=== PATIENT | male | born 1975 | race Caucasian/White ===

== ENCOUNTER 2018-01-11 12:19 | Inpatient (IN) | payer MEDICARE, OTHER ==
[~2018-01-11] VITALS: Ht 167.6 cm; Wt 63.5 kg
[2018-01-11] MEDS ORDERED: HALO10TA13 PO (12:53)
[2018-01-11] MEDS ORDERED: OLAN15TA3 PO (12:53)
[2018-01-11] MEDS ORDERED: VANCOMYCIN IV 1,000 MG in IV DEXTROSE 5% 250 ML IV ONE (13:45)
[2018-01-11] MEDS ORDERED: IV NORMAL SALINE 1000 ML BAG IV ONE (13:45)
[2018-01-11] MEDS ORDERED: GENTAMICIN SULFATE INJ 80 MG in IV DEXTROSE 5% 100 ML IV ONE (13:45)
[2018-01-11] MEDS ORDERED: GENTAMICIN SULFATE 80 MG/2 ML VIAL ONE (14:09)
[2018-01-11] MEDS ORDERED: VANCOMYCIN IV 200 ML ONE (14:10)
[2018-01-11 14:25] LABS: BASOPHILS % (AUTO) 0.4 % (0.0-2.0); EOSINOPHILS # (AUTO) 0.1 K/uL (0.0-0.7); EOSINOPHILS % (AUTO) 0.9 % (0.0-7.0); HEMATOCRIT 35.6 % (36.7-47.1); HEMOGLOBIN 12.3 g/dL (12.5-16.3); LYMPHOCYTES # (AUTO) 1.2 K/uL (20.0-40.0); LYMPHOCYTES % (AUTO) 16.7 % (20.5-51.5); MEAN CORPUSCULAR HEMOGLOBIN 29.8 uug (23.8-33.4); MEAN CORPUSCULAR HGB CONC 35 g/dL (32.5-36.3); MONOCYTES # (AUTO) 0.7 K/uL (2.0-10.0); MONOCYTES % (AUTO) 9.7 % (0.0-11.0); NEUTROPHILS # (AUTO) 5.4 K/uL (1.8-8.9); NEUTROPHILS % (AUTO) 72.3 % (38.5-71.5); PLATELET COUNT (AUTO) 353 K/uL (152-348); RED BLOOD CELL COUNT(AUTO) 4.14 MIL/uL (4.06-5.63); WHITE BLOOD COUNT (AUTO) 7.4 K/uL (3.6-10.2)
[2018-01-11 14:33] LABS: CREATININE 0.8 mg/dL (0.6-1.3); POTASSIUM 3.7 mmol/L (3.5-5.1)
[2018-01-11 14:49] LABS: BILIRUBIN,DIRECT 0.1 mg/dL (0.0-0.2); BILIRUBIN,TOTAL 0.3 mg/dL (0.2-1.0); TOTAL PROTEIN, SERUM 6.8 g/dL (6.4-8.2)
[2018-01-11 15:02] LABS: *BILIRUBIN,URIN NEGATIVE (NEGATIVE); *BLOOD, URINE 2+ (NEGATIVE); *CLARITY,URINE SLIGHTLY CLOUDY (CLEAR); *COLOR,URINE YELLOW (YELLOW); *KETONES,URINE 1+ (NEGATIVE); *PROTEIN,URINE NEGATIVE (NEGATIVE); *UROBILINOGEN,URINE 0.2 E.U./dl (NORMAL); LEUKOCYTE ESTERASE ,URINE NEGATIVE (NEGATIVE); NITRITE, URINE NEGATIVE (NEGATIVE); UGLUCOSE NEGATIVE (NEGATIVE)
[2018-01-11 15:10] LABS: BACTERIA,URINE NONE SEEN /HPF (NONE SEEN); SQUAMOUS EPITHELIAL CELL,UR FEW /HPF (NONE SEEN)
[2018-01-11] MEDS ORDERED: MORPHINE SULFATE 2 MG/1 ML DISP.SYRIN IV PRN (18:15)
[2018-01-11 18:27] VITALS: BP 106/71
[2018-01-11] MEDS ORDERED: MORPHINE SULFATE 4 MG/1 ML DISP.SYRIN IV PRN (18:30)
[2018-01-11 20:26] VITALS: BP 142/74
[2018-01-11] MEDS ORDERED: ACETAMINOPHEN 325 MG TABLET PO PRN (20:30)
[2018-01-11] MEDS ORDERED: ONDANSETRON 4 MG/2 ML VIAL IV PRN (20:30)
[2018-01-12 00:20] VITALS: BP 119/68
[2018-01-12] MEDS: POTASSIUM CHLORIDE 20 MEQ in IV D5 1/2 NS 1000 ML 1,000 ML IV PRN ×2 (01:51→16:57)
[2018-01-12 04:00] VITALS: BP 110/71
[2018-01-12] MEDS: PANTOPRAZOLE SODIUM 40 MG TABLET.DR PO SCH (06:09)
[2018-01-12 07:08] LABS: BASOPHILS % (AUTO) 0.3 % (0.0-2.0); EOSINOPHILS # (AUTO) 0.1 K/uL (0.0-0.7); EOSINOPHILS % (AUTO) 1.2 % (0.0-7.0); HEMATOCRIT 34.8 % (36.7-47.1); HEMOGLOBIN 11.9 g/dL (12.5-16.3); LYMPHOCYTES # (AUTO) 1.9 K/uL (20.0-40.0); LYMPHOCYTES % (AUTO) 26.4 % (20.5-51.5); MEAN CORPUSCULAR HEMOGLOBIN 29.6 uug (23.8-33.4); MEAN CORPUSCULAR HGB CONC 34 g/dL (32.5-36.3); MEAN CORPUSCULAR VOLUME 86.5 fL (73.0-96.2); MONOCYTES # (AUTO) 0.4 K/uL (2.0-10.0); MONOCYTES % (AUTO) 5.9 % (0.0-11.0); NEUTROPHILS # (AUTO) 4.8 K/uL (1.8-8.9); NEUTROPHILS % (AUTO) 66.2 % (38.5-71.5); PLATELET COUNT (AUTO) 350 K/uL (152-348); RED BLOOD CELL COUNT(AUTO) 4.03 MIL/uL (4.06-5.63); WHITE BLOOD COUNT (AUTO) 7.2 K/uL (3.6-10.2)
[2018-01-12 07:16] LABS: THYROID STIMULATING HORMONE 1.163 mIU/mL (0.358-3.740)
[2018-01-12] MEDS: LORAZEPAM 2 MG/1 ML VIAL IV PRN (07:47)
[2018-01-12 08:00] VITALS: BP 116/69
[2018-01-12 08:18] LABS: BILIRUBIN,TOTAL 0.4 mg/dL (0.2-1.0); CREATININE 0.7 mg/dL (0.6-1.3); MAGNESIUM 1.7 mg/dL (1.8-2.4); PHOSPHOROUS 3.9 mg/dL (2.5-4.9); POTASSIUM 3.8 mmol/L (3.5-5.1); TOTAL PROTEIN, SERUM 6.4 g/dL (6.4-8.2)
[2018-01-12] MEDS ORDERED: OLANZAPINE 5 MG TABLET PO SCH (09:00)
[2018-01-12] MEDS ORDERED: HALOPERIDOL 5 MG TABLET PO SCH (09:00)
[2018-01-12 11:04] VITALS: BP 105/61
[2018-01-12] MEDS ORDERED: MAGNESIUM SULFATE/D5W 100 ML IV SCH (12:15)
[2018-01-12] MEDS ORDERED: Z GUARD REMEDY PASTE 57 GM TUBE TOP PRN (13:45)
[2018-01-12 15:01] VITALS: BP 100/63
[2018-01-12] MEDS: Z GUARD REMEDY PASTE 57 GM TUBE TOP SCH ×2 (15:47→21:06)
[2018-01-12] MEDS: OLANZAPINE 5 MG TABLET PO SCH (16:53)
[2018-01-12] MEDS: BENZTROPINE MESYLATE 0.5 MG TABLET PO SCH (18:50)
[2018-01-12 20:00] VITALS: BP 100/57
[2018-01-13] MEDS: POTASSIUM CHLORIDE 20 MEQ in IV D5 1/2 NS 1000 ML 1,000 ML IV PRN ×2 (05:18→18:55)
[2018-01-13] MEDS: PANTOPRAZOLE SODIUM 40 MG TABLET.DR PO SCH (06:18)
[2018-01-13] MEDS: BENZTROPINE MESYLATE 0.5 MG TABLET PO SCH ×2 (08:32→16:53)
[2018-01-13] MEDS: OLANZAPINE 5 MG TABLET PO SCH ×2 (08:32→16:57)
[2018-01-13] MEDS: Z GUARD REMEDY PASTE 57 GM TUBE TOP SCH ×2 (08:36→19:56)
[2018-01-13 11:59] VITALS: BP 100/64
[2018-01-13 16:00] VITALS: BP 105/69
[2018-01-13] MEDS: LORAZEPAM 2 MG/1 ML VIAL IV PRN (19:55)
[2018-01-13 20:32] VITALS: BP 97/60
[2018-01-13 21:46] VITALS: BP 115/67
[2018-01-14 04:00] VITALS: BP 103/61
[2018-01-14] MEDS: PANTOPRAZOLE SODIUM 40 MG TABLET.DR PO SCH (06:04)
[2018-01-14] MEDS: BENZTROPINE MESYLATE 0.5 MG TABLET PO SCH ×2 (08:28→17:06)
[2018-01-14] MEDS: OLANZAPINE 5 MG TABLET PO SCH (08:29)
[2018-01-14] MEDS: Z GUARD REMEDY PASTE 57 GM TUBE TOP SCH (08:30)
[2018-01-14] MEDS: POTASSIUM CHLORIDE 20 MEQ in IV D5 1/2 NS 1000 ML 1,000 ML IV PRN (09:57)
[2018-01-14 11:52] VITALS: BP 94/52
[2018-01-14 15:41] VITALS: BP 96/59
[2018-01-14] MEDS ORDERED: MAGN400O6 PO (15:44)
[2018-01-14] MEDS ORDERED: MULT1TAB73 PO (15:44)
[2018-01-14] MEDS ORDERED: ACET325T53 PO (15:44)
[2018-01-14] MEDS ORDERED: MENT71OI TOP (15:44)
[2018-01-14] MEDS ORDERED: FAMO-132 PO (15:44)
[2018-01-14] MEDS ORDERED: DOCU-141 PO (15:44)
[2018-01-14] MEDS ORDERED: BENZ0.5T43 PO (15:44)
== END 2018-01-14 17:25 | DRG 555 ==
LOC: ER 12:19 → TELE 15:50 → MED 01-12 14:59
PROVIDERS: ADMIT Internal Medicine; ATTEND Internal Medicine
DX: M62.81 Muscle weakness (generalized) (principal); G92 Toxic encephalopathy; D68.59 Other primary thrombophilia; S06.9X0S Unspecified intracranial injury without loss of consciousness, sequela; F20.0 Paranoid schizophrenia; E83.42 Hypomagnesemia; F07.81 Postconcussional syndrome; T14.8XXS Other injury of unspecified body region, sequela; X58.XXXS Exposure to other specified factors, sequela; D63.8 Anemia in other chronic diseases classified elsewhere; Z87.891 Personal history of nicotine dependence; Z74.09 Other reduced mobility; R13.10 Dysphagia, unspecified; R00.0 Tachycardia, unspecified; R47.9 Unspecified speech disturbances
CPT/HCPCS: 36415; 70030-TC; 70450; 71045; 82306; 83550; 83605; 83735; 84100; 84443; 85025; 85730; 87040; 87086; 92610; 93005; 97116; 97165; 97530; A4663; J1580; J2060; J2270; J3370; J3475; J3480; J3490; J7030

== ENCOUNTER 2018-01-14 18:03 | Inpatient (IN) | payer MEDICARE, OTHER ==
[~2018-01-14] VITALS: Ht 167.6 cm; Wt 63.5 kg
[~2018-01-14 18:03] MED LIST: ACET325T53 PO; BENZ0.5T43 PO; DOCU-141 PO; FAMO-132 PO; HALO10TA13 PO; MAGN400O6 PO; MENT71OI TOP; MULT1TAB73 PO; OLAN15TA3 PO
[2018-01-14 19:30] VITALS: BP 102/68
[2018-01-14] MEDS ORDERED: ACETAMINOPHEN 325 MG TABLET PO PRN (19:45)
[2018-01-14] MEDS ORDERED: MAGNESIUM HYDROXIDE 30 ML LIQUID UDC PO PRN (19:45)
[2018-01-14] MEDS ORDERED: Z GUARD REMEDY PASTE 57 GM TUBE TOP PRN (19:45)
--- NOTE | 2018-01-14 20:30 | NUR ---
Received pt on bed awake and alert with no signs/symptoms of distress. Denies pain at this time. No SOB noted. All due meds given as ordered and well tolerated. No signs/symptoms of aspiration noted. Kept clean, dry and comfortable. Side rails up x2. Bed alarm on. Bed locked and in lowest position. Call light placed within reach. All needs attended.
[2018-01-14] MEDS: DOCUSATE SODIUM 100 MG CAPSULE PO SCH (20:48)
--- NOTE | 2018-01-15 05:53 | NUR ---
Patient slept intermittently throughout the shift. No acute distress noted. No signs/symptoms of agitation noted. No facial grimacing or any signs of pain. Pertinent assessments done, pictures taken and placed on chart. Incontinent care rendered. Turned and repositioned pt. Call light placed within reach. All needs attended
[2018-01-15 07:00] VITALS: BP 95/58
[2018-01-15 07:30] LABS: BASOPHILS % (AUTO) 0.5 % (0.0-2.0); EOSINOPHILS # (AUTO) 0.2 K/uL (0.0-0.7); EOSINOPHILS % (AUTO) 2.4 % (0.0-7.0); HEMATOCRIT 36.3 % (36.7-47.1); HEMOGLOBIN 12.3 g/dL (12.5-16.3); LYMPHOCYTES # (AUTO) 2.1 K/uL (20.0-40.0); LYMPHOCYTES % (AUTO) 31.2 % (20.5-51.5); MEAN CORPUSCULAR HEMOGLOBIN 29.3 uug (23.8-33.4); MEAN CORPUSCULAR HGB CONC 34 g/dL (32.5-36.3); MEAN CORPUSCULAR VOLUME 86.5 fL (73.0-96.2); MONOCYTES # (AUTO) 0.5 K/uL (2.0-10.0); NEUTROPHILS # (AUTO) 3.9 K/uL (1.8-8.9); NEUTROPHILS % (AUTO) 58.9 % (38.5-71.5); PLATELET COUNT (AUTO) 341 K/uL (152-348); WHITE BLOOD COUNT (AUTO) 6.6 K/uL (3.6-10.2)
[2018-01-15 07:45] LABS: ALANINE AMINOTRANSFERASE 26 U/L (16-63); ALKALINE PHOSPHATASE 62 U/L (50-136); ASPARTATE AMINOTRANSFERASE 14 U/L (15-37); BILIRUBIN,TOTAL 0.3 mg/dL (0.2-1.0); CARBON DIOXIDE 28 mmol/L (21-32); CHLORIDE 105 mmol/L (98-107); CREATININE 0.6 mg/dL (0.6-1.3); GLUCOSE 94 mg/dL (74-106); MAGNESIUM 1.8 mg/dL (1.8-2.4); PHOSPHOROUS 3.9 mg/dL (2.5-4.9); POTASSIUM 3.9 mmol/L (3.5-5.1); TOTAL PROTEIN, SERUM 6.4 g/dL (6.4-8.2); UREA NITROGEN, BLOOD 12 mg/dL (7-18)
[2018-01-15] MEDS: OLANZAPINE 5 MG TABLET PO SCH ×2 (08:34→18:15)
[2018-01-15] MEDS: FAMOTIDINE 20 MG TABLET PO SCH (08:36)
[2018-01-15] MEDS: MULTIVITAMINS,THERAPEUTIC TABLET PO SCH (08:36)
[2018-01-15] MEDS: BENZTROPINE MESYLATE 0.5 MG TABLET PO SCH ×2 (08:36→18:16)
[2018-01-15] MEDS ORDERED: Medication Not On Formulary EA (Multivitamins (Multivitamin) 1 EACH) PO SCH (09:00)
[2018-01-15 19:45] VITALS: BP 107/67
--- NOTE | 2018-01-15 19:57 | NUR ---
Received pt on bed alert and awake. No apparent distress noted. No facial grimacing noted or any signs of pain. Breathing even and unlabored with normal respirations. Vital signs stable. Kept clean, dry and comfortable. Side rails up x2. Bed alarm on. Bed locked and in lowest position. Call light within reach. All needs anticipated.
[2018-01-15] MEDS: DOCUSATE SODIUM 100 MG CAPSULE PO SCH (20:30)
--- NOTE | 2018-01-16 05:37 | NUR ---
Patient slept intermittently during the shift. still with episodes of confusion but no acute distress noted. No signs of pain noted. No SOB. Turned and repositioned pt. Z-guard applied on sacrum. Kept clean, dry and comfortable. Call light within reach. All needs anticipated.
[2018-01-16 07:50] VITALS: BP 106/65
[2018-01-16] MEDS: FAMOTIDINE 20 MG TABLET PO SCH (09:03)
[2018-01-16] MEDS: OLANZAPINE 5 MG TABLET PO SCH ×3 (09:03→18:20)
[2018-01-16] MEDS: MULTIVITAMINS,THERAPEUTIC TABLET PO SCH (09:03)
[2018-01-16] MEDS: BENZTROPINE MESYLATE 0.5 MG TABLET PO SCH ×3 (09:07→18:21)
[2018-01-16 19:30] VITALS: BP 107/64
--- NOTE | 2018-01-16 19:40 | NUR ---
Pt resting in bed. No acute distress noted. No c/o pain or discomfort. No facial grimacing or other signs of pain noted. Safety measures maintained. Bed alarm on. Call light and personal belongings within reach. Will continue to monitor.
[2018-01-16] MEDS: DOCUSATE SODIUM 100 MG CAPSULE PO SCH (20:13)
--- NOTE | 2018-01-17 05:53 | NUR ---
Pt slept intermittently at night. Had watery bowel movement with foul smelling odor noted x1. MD made aware last night of pt's diarrhea ever since the morning. Diaper changed as needed. All needs attended to promptly. Will endorse to day shift RN. Continue to monitor.
[2018-01-17 08:00] VITALS: BP 107/64
[2018-01-17] MEDS: FAMOTIDINE 20 MG TABLET PO SCH (09:00)
[2018-01-17] MEDS: MULTIVITAMINS,THERAPEUTIC TABLET PO SCH (09:00)
[2018-01-17] MEDS: BENZTROPINE MESYLATE 0.5 MG TABLET PO SCH ×2 (09:17→17:01)
[2018-01-17] MEDS: OLANZAPINE 5 MG TABLET PO SCH ×2 (09:18→17:01)
--- NOTE | 2018-01-17 18:52 | NUR ---
Pt clean and dry, repositioned for comfort Q2hrs. Pt denies pain. Compliant with evening medication administration but refused morning vitamin. Pt had a loose BMx1 with slight blood present this shift. Call light within reach. Safety and comfort measures implemented. Will continue to monitor and endorse to oncoming transfer car operator drier.
--- NOTE | 2018-01-17 19:58 | NUR ---
Introduced myself after knocking the door. Receive patient laying in bed, asleep but wakes up when called by name. Patient appeared scared and and stared at me without saying a word. Asked patient is he is okay, if he is in pain or what is in his mind. Explained to patient that I am her nurse tonight and that I will take his vital signs. He refused at first and stated people are trying to kill him, that I am one of those people that wants to kill him with the thing that I was holding which was the bp cuff. Explained thoroughly to the patient that the bp will be used to take his blood pressure. Reoriented the patient and reassured the patient that he will be safe because he is in the hospital. Patient agreed to have his vital signs taken except for the temperature. Patient stated he wanted to sleep and never want to be disturbed. Explained to patient again that I will be checking on him regularly to make sure he is okay and safe. Patient turned to his back and was laid on his right side and covered his face without any response. Will continue to monitor the patient.
[2018-01-17] MEDS: DOCUSATE SODIUM 100 MG CAPSULE PO SCH (20:53)
--- NOTE | 2018-01-17 21:10 | NUR ---
MD Dr. Begum made rounds, informed and updated about patient's condition. Pt. appreared sleeping for now and no sigsn of any agitation. With new order of Psych consult. Will continue to monitor the patient.
--- NOTE | 2018-01-17 21:15 | NUR ---
Susy MORALES from [facility] informed regarding patient's psych consult. Per CN they will inform Dr. Sumner in AM.
--- NOTE | 2018-01-18 05:20 | NUR ---
Patient able to sleep throughout the night. Diaper changed per soiling, no BM noted. Patient appeared confused, emotionally flat and when asked with certain questions like if he is okay or is in pain, patient answers selective questions only. Patient not talking much and appeared to withdrawn after conversation. Will continue to monitor the patient.
[2018-01-18 07:09] VITALS: BP 98/58
[2018-01-18] MEDS: OLANZAPINE 5 MG TABLET PO SCH ×2 (08:17→17:47)
[2018-01-18] MEDS: FAMOTIDINE 20 MG TABLET PO SCH (08:17)
[2018-01-18] MEDS: MULTIVITAMINS,THERAPEUTIC TABLET PO SCH (08:17)
[2018-01-18] MEDS: BENZTROPINE MESYLATE 0.5 MG TABLET PO SCH ×2 (08:21→17:47)
--- NOTE | 2018-01-18 09:33 | NUR ---
Patient noted sitting in chair wide side table in front, no complaints of pain noted, no signs of distress, call light in reach, PETROLEUM ENGINEER assistance for meals provided, all am medications given
--- NOTE | 2018-01-18 19:30 | NUR ---
Patient received in bed. Alert and verbally responsive. Able to make needs known. Denies any pain and discomfort. No acute distress. No SOB. Kept clean and dry. All needs attended to promptly. Call light within reach. Will continue to monitor.
[2018-01-18 20:00] VITALS: BP 96/69
[2018-01-18] MEDS: DOCUSATE SODIUM 100 MG CAPSULE PO SCH (20:44)
--- NOTE | 2018-01-19 06:03 | NUR ---
Patient slept comfortably throughout the night. No c/o pain and discomfort. No acute distress. No SOB. Kept clean and dry. All needs attended to promptly. Call light within reach. Will continue to monitor.
[2018-01-19 07:13] VITALS: BP 98/62
--- NOTE | 2018-01-19 08:00 | NUR ---
Received patient, awake alert resting in bed. Denies any pain. Appears to be withdrawn
[2018-01-19] MEDS: BENZTROPINE MESYLATE 0.5 MG TABLET PO SCH ×3 (08:44→17:21)
[2018-01-19] MEDS: MULTIVITAMINS,THERAPEUTIC TABLET PO SCH (08:44)
[2018-01-19] MEDS: FAMOTIDINE 20 MG TABLET PO SCH (08:45)
[2018-01-19] MEDS: OLANZAPINE 5 MG TABLET PO SCH ×3 (08:45→17:21)
[2018-01-19] MEDS: SERTRALINE HCL 50 MG TABLET PO SCH (08:45)
--- NOTE | 2018-01-19 18:00 | NUR ---
Refused Xyprexa an Cogentin medications, patient spitted medication out and claims it upsets his stomach and claims we are trying to get rid of him. Explained benefits and risks to patient, patient still refused.
--- NOTE | 2018-01-19 20:00 | NUR ---
Received patient sitting up in bed. Alert and verbally responsive. Able to make needs known. Denies any pain and discomfort. No acute distress. No SOB. Kept clean and dry. All needs attended to promptly. Call light within reach. Will continue to monitor.
[2018-01-19 20:29] VITALS: BP 99/59
[2018-01-19] MEDS: DOCUSATE SODIUM 100 MG CAPSULE PO SCH (21:00)
--- NOTE | 2018-01-19 21:07 | NUR ---
Patient refused 2100 docusate sodium 200mg. Verbalizes he just wants to sleep. Explained risks and benefits. Still strongly refused x3. All needs attended to promptly. Call light within reach. Will continue to monitor.
[2018-01-20 07:30] VITALS: BP 87/50
[2018-01-20] MEDS: OLANZAPINE 5 MG TABLET PO SCH ×2 (09:07→17:00)
[2018-01-20] MEDS: BENZTROPINE MESYLATE 0.5 MG TABLET PO SCH ×2 (09:07→17:00)
[2018-01-20] MEDS: FAMOTIDINE 20 MG TABLET PO SCH (09:07)
[2018-01-20] MEDS: MULTIVITAMINS,THERAPEUTIC TABLET PO SCH (09:08)
[2018-01-20] MEDS: SERTRALINE HCL 50 MG TABLET PO SCH (09:08)
[2018-01-20 20:00] VITALS: BP 101/65
--- NOTE | 2018-01-20 20:00 | NUR ---
Received pt lying comfortably in bed, alert and awake with episodes of confusion. no apparent distress noted. No complaints of pain or discomfort. No SOB noted. All due meds given as ordered and well tolerated. Kept clean, dry and comfortable. Side rails up x2. Bed alarm on. Bed locked and in lowest position. Call light placed within reach. All needs attended.
[2018-01-20] MEDS: DOCUSATE SODIUM 100 MG CAPSULE PO SCH (20:29)
--- NOTE | 2018-01-21 05:58 | NUR ---
Patient slept well throughout the shift with no signs of distress. No facial grimacing or any signs of pain noted. No SOB. Kept clean, dry and comfortable. Safety and fall precautions observed and maintained. Call light within reach. All needs attended.
[2018-01-21] MEDS: FAMOTIDINE 20 MG TABLET PO SCH (08:29)
[2018-01-21] MEDS: SERTRALINE HCL 50 MG TABLET PO SCH (08:29)
[2018-01-21] MEDS: BENZTROPINE MESYLATE 0.5 MG TABLET PO SCH ×2 (08:30→17:00)
[2018-01-21] MEDS: OLANZAPINE 5 MG TABLET PO SCH ×2 (08:30→17:00)
[2018-01-21] MEDS: MULTIVITAMINS,THERAPEUTIC TABLET PO SCH (08:35)
--- NOTE | 2018-01-21 14:57 | NUR ---
INTERDISCIPLINARY TEAM CONFERENCE
--- NOTE | 2018-01-21 19:35 | NUR ---
Receive patient laying in bed, awake and looking so scared and was screaming. Introduced and explained to patient that I am her nurse tonight. Fear and hallucinations noted. Patient saying his room is on fire as well as the people inside the room. Reoriented the patient and reassured the patient that there is no fire and that he is in the hospital. Vital signs taken and recorded, WNL. Pertinent assessment done. Will inform MD of patient's status. Will continue to monitor the patient.
[2018-01-21] MEDS ORDERED: HALOPERIDOL LACTATE 5 MG/1 ML VIAL IM PRN (20:30)
--- NOTE | 2018-01-21 20:30 | NUR ---
Patient noted screaming loudly again and saying there's fire. MD Dr. Santos informed, with new order of Haldol 2mg injection one dose only noted and recorded. Will continue to monitor the patient.
[2018-01-21 20:48] VITALS: BP 109/65
[2018-01-21] MEDS: DOCUSATE SODIUM 100 MG CAPSULE PO SCH (21:13)
--- NOTE | 2018-01-22 05:37 | NUR ---
Patient able to sleep throughout the night. No s/s of any acute respiratory distress. All needs attended to. Patient kept clean, dry and comfortable. Diaper changed per soiling. Will endorse to AM shift nurse.
--- NOTE | 2018-01-22 08:00 | NUR ---
Received pt. in bed resting, awake, oriented x 2, confused and hallucinating @ times. Pt. in room air and no s/s of sob. Breathing regular, symmetrical and unlabored. Pt. in semi-fowlers position, turned and repositioned pt. as needed with the help of CAREER LAW CLERK. Pt. denies pain during assessment, ready to eat breakfast, able to eat by himself after setting the breakfast tray. The psyche consult Dr. Magdaleno is already notified/called by the night shifts RN in order for the Doctor to visit and checked pt to ARU due to increase hallucination such as screaming, seeing or hearing things that are not there, paranoia episodes and other Schizophrenic S/S. Awaiting for the MD to see pt.
[2018-01-22 08:47] VITALS: BP 102/67
[2018-01-22] MEDS: OLANZAPINE 5 MG TABLET PO SCH ×2 (10:14→17:48)
[2018-01-22] MEDS: FAMOTIDINE 20 MG TABLET PO SCH (10:14)
[2018-01-22] MEDS: MULTIVITAMINS,THERAPEUTIC TABLET PO SCH (10:14)
[2018-01-22] MEDS: SERTRALINE HCL 50 MG TABLET PO SCH (10:14)
[2018-01-22] MEDS: BENZTROPINE MESYLATE 0.5 MG TABLET PO SCH ×2 (10:15→17:47)
--- NOTE | 2018-01-22 12:00 | NUR ---
Pt. resting, able to express and verbalize to the RN and other caregivers his needs and concerns, still with psyche s/s that needs to be seen by the Psyche Physician. Maintained pt. safety, keep clean, dry and comfortable in bed.
--- NOTE | 2018-01-22 17:00 | NUR ---
Pt. provided bedside nsg. care. No s/s of acute change. Pt. stable with v/s, afebrile -see v/s done by the BLOCK SEALER. Frequent roundings and repositional change and assistance with needs @ provided @ the bedside. Keep pt. safe, warm, clean, dry and comfortable in bed.
[2018-01-22 20:18] VITALS: BP 100/62
--- NOTE | 2018-01-22 20:30 | NUR ---
NSG: Received patient laying in bed. Alert and verbally responsive. Able to make needs known. Denies any pain and discomfort. No acute distress. No SOB. Kept clean and dry. All needs attended to promptly. Call light within reach. Refused hs po Colace. continue plan of care.
[2018-01-22] MEDS: DOCUSATE SODIUM 100 MG CAPSULE PO SCH (21:00)
--- NOTE | 2018-01-23 06:43 | NUR ---
NSG:Patient slept comfortably throughout the night. Remain confused and forgetful. No c/o pain and discomfort. No acute distress. No SOB. Kept clean and dry. All needs attended to promptly. Call light within reach. Will continue to monitor.
[2018-01-23 07:30] VITALS: BP 122/75
[2018-01-23] MEDS: OLANZAPINE 5 MG TABLET PO SCH ×2 (08:48→16:47)
[2018-01-23] MEDS: MULTIVITAMINS,THERAPEUTIC TABLET PO SCH (08:51)
[2018-01-23] MEDS: SERTRALINE HCL 50 MG TABLET PO SCH (08:51)
[2018-01-23] MEDS: FAMOTIDINE 20 MG TABLET PO SCH (08:51)
[2018-01-23] MEDS: BENZTROPINE MESYLATE 0.5 MG TABLET PO SCH ×2 (08:51→16:49)
--- NOTE | 2018-01-23 17:59 | NUR ---
Daily Nursing Note: Patient is awake and alert, with periods of forgetfulness. Needs attended promptly. Compliant with his care plan. Patient has episodes of agitation, provided with constant reassurance and redirection provided. Kept clean and dry. Call light in reach, bed in low position.
--- NOTE | 2018-01-23 19:30 | NUR ---
Received patient from day shift RN. Patient currently lying in bed comfortably with no acute distress noted. Patient seems slightly confused but able to make some needs known. Pertinent assessment completed. Patient noted with open wound sacral area, present on admission. Currently has Z guard applied. Room checked for safety at start of shift. Bed in the low position & locked. Call light within reach. Will continue to monitor through shift.
[2018-01-23 20:00] VITALS: BP 102/67
[2018-01-23] MEDS: DOCUSATE SODIUM 100 MG CAPSULE PO SCH (21:11)
--- NOTE | 2018-01-24 06:09 | NUR ---
Patient slept well through the night. No agitation noted during the shift. All needs attended to. Diaper changed per soiling. Patient kept clean & dry. Safety measures implemented. Bed kept in the low position & locked. Provided skin care to sacral area of patient. Z Guard and mepilex applied. Call light within reach. Will endorse to day shift nurse.
[2018-01-24 07:53] VITALS: BP 91/53
--- NOTE | 2018-01-24 08:09 | NUR ---
Patient noted laying bed, no facial cues of pain noted, no signs of distress noted, call light in reach, bed locked and in lowest position, bed alarm in place, x 2 bed rails, all needs met at this time
[2018-01-24] MEDS: SERTRALINE HCL 50 MG TABLET PO SCH (09:18)
[2018-01-24] MEDS: OLANZAPINE 5 MG TABLET PO SCH ×2 (09:19→17:26)
[2018-01-24] MEDS: MULTIVITAMINS,THERAPEUTIC TABLET PO SCH (09:19)
[2018-01-24] MEDS: BENZTROPINE MESYLATE 0.5 MG TABLET PO SCH ×2 (09:19→17:26)
[2018-01-24] MEDS: FAMOTIDINE 20 MG TABLET PO SCH (09:19)
--- NOTE | 2018-01-24 14:00 | NUR ---
INFORMED DR. CANO OF PERIODS OF HALLUCINATIONS AND PARANOIA ON 01/22. NO NEW ORDERS AT THIS TIME.
--- NOTE | 2018-01-24 15:26 | NUR ---
WOUND CARE CONSULT: PT SEEN FOR GLUTEAL CREASE EXCORIATION. PT IS INCONTINENT AT TIMES. RECOMMENDATIONS DISCUSSED WITH NURSING STAFF. WILL SEE PRN. MUNGUIA IN AGREEMENT WITH PLAN OF CARE. Addendum: 01/24/18 at 1527 by CLAUDY MCKINNEY RN Amended: Links added.
[2018-01-24 19:30] VITALS: BP 92/54
--- NOTE | 2018-01-24 19:30 | NUR ---
Received patient from day shift nurse. Patient currently lying in bed with no signs of pain, sob, or acute distress. Vital signs WNL. Pertinent assessment completed. Noted with sacral wound. Will care for sacral wound per MD order. Room checked for safety at start of shift. Bed in low position, locked. Call light within reach of patient. Will continue to monitor through shift.
[2018-01-24] MEDS: DOCUSATE SODIUM 100 MG CAPSULE PO SCH (20:12)
--- NOTE | 2018-01-25 06:05 | NUR ---
Patient slept well through out the shift. No acute distress noted. All needs attended to promptly. Patient kept clean, dry, changed per soiling. Provided patient with constant reassurance and redirection. No s/s of agitation noted during shift. Safety measures implemented. Bed alarm on, Call light in reach, bed in low position. Will endorse to day shift nurse.
[2018-01-25 07:10] VITALS: BP 98/63
[2018-01-25] MEDS: OLANZAPINE 5 MG TABLET PO SCH ×2 (09:08→16:28)
[2018-01-25] MEDS: MULTIVITAMINS,THERAPEUTIC TABLET PO SCH (09:08)
[2018-01-25] MEDS: BENZTROPINE MESYLATE 0.5 MG TABLET PO SCH ×2 (09:08→16:28)
[2018-01-25] MEDS: SERTRALINE HCL 50 MG TABLET PO SCH (09:08)
[2018-01-25] MEDS: FAMOTIDINE 20 MG TABLET PO SCH (09:08)
--- NOTE | 2018-01-25 09:27 | NUR ---
i agree Addendum: 01/25/18 at 09 by ILANA ONEAL OT Amended: Links added.
--- NOTE | 2018-01-25 09:27 | NUR ---
i agree Addendum: 01/25/18 at 0928 by ILANA ONEAL OT Amended: Links added.
[2018-01-25 20:00] VITALS: BP 104/70
--- NOTE | 2018-01-25 20:00 | NUR ---
RECEIVED PATIENT AWAKE IN BED, HE'S AXO2 WITH CONFUSION. HE DENIES PAIN OR ANY DISTRESS ON ASSESSMENT, V/S STABLE. SAFETY AND COMFORT MEASURES IN PLACE. BED IN LOW POSITION AND LOCKED. CALL LIGHT LEFT WITHIN PATIENT'S REACH. WILL CONTINUE TO MONITOR PATIENT
[2018-01-25] MEDS: DOCUSATE SODIUM 100 MG CAPSULE PO SCH (21:07)
--- NOTE | 2018-01-26 06:56 | NUR ---
PATIENT SLEPT WELL THROUGH THE NIGHT WITH NO S/S OF PAIN OR ANY DISTRESS NOTED ON THIS SHIFT. NO SIGNIFICANT CHANGES IN STATUS, PATIENT RESTING COMFORTABLY WITH NO ACUTE DISTRESS. SAFETY MEASURES IN PLACE
[2018-01-26 08:42] VITALS: BP 92/55
[2018-01-26] MEDS: BENZTROPINE MESYLATE 0.5 MG TABLET PO SCH ×2 (09:10→16:22)
[2018-01-26] MEDS: OLANZAPINE 5 MG TABLET PO SCH ×2 (09:10→16:22)
[2018-01-26] MEDS: MULTIVITAMINS,THERAPEUTIC TABLET PO SCH (09:11)
[2018-01-26] MEDS: FAMOTIDINE 20 MG TABLET PO SCH (09:11)
[2018-01-26] MEDS: SERTRALINE HCL 50 MG TABLET PO SCH (09:11)
--- NOTE | 2018-01-26 19:45 | NUR ---
Receive patient laying in bed, asleep but arouses when called by name. Introduced and explained to patient that I am her nurse tonight. Patient appeared calm, no agitations or hallucinations noted. Vital signs taken and recorded, WNL. Pertinent assessment done. Will monitor the patient.
[2018-01-26 20:07] VITALS: BP 97/65
[2018-01-26] MEDS: DOCUSATE SODIUM 100 MG CAPSULE PO SCH (20:25)
[2018-01-27 08:27] VITALS: BP 92/52
[2018-01-27] MEDS: OLANZAPINE 5 MG TABLET PO SCH ×2 (09:13→16:59)
[2018-01-27] MEDS: SERTRALINE HCL 50 MG TABLET PO SCH (09:13)
[2018-01-27] MEDS: FAMOTIDINE 20 MG TABLET PO SCH (09:13)
[2018-01-27] MEDS: MULTIVITAMINS,THERAPEUTIC TABLET PO SCH (09:13)
[2018-01-27] MEDS: BENZTROPINE MESYLATE 0.5 MG TABLET PO SCH ×2 (09:14→16:59)
[2018-01-27] MEDS ORDERED: BISACODYL 10 MG SUPP.RECT RC ONE (14:15)
[2018-01-27] MEDS ORDERED: MIRALAX 17 GM POWD.PACK PO ONE (14:15)
--- NOTE | 2018-01-27 19:00 | NUR ---
NURSE NOTES: patient remained to be in stable throughout the shift with no acute changes. hourly rounding done. bed alarm on for safety. patient able to defecate x 1 large amount in the bathroom. no SOB or distress noted. Denies any pain or discomforts. Call light within reach at all times. Will endorse to incoming shift
[2018-01-27 20:00] VITALS: BP 114/66
[2018-01-27] MEDS: DOCUSATE SODIUM 100 MG CAPSULE PO SCH (20:43)
--- NOTE | 2018-01-27 22:40 | NUR ---
Patient was in bed, with blanket on, looking really scared and worried. Patient noted with hallucinations saying the room is on fire including his blanket and that he is falling out of bed. Reoriented patient but patient still keeps on screaming. Dr. Thompson informed of patient's current status, with new order noted and carried out.
[2018-01-27] MEDS ORDERED: HALOPERIDOL LACTATE 5 MG/1 ML VIAL IM ONE (23:00)
--- NOTE | 2018-01-27 23:00 | NUR ---
Haldol 2mg IM injection given per MD's order. will monitor the patient.
--- NOTE | 2018-01-28 06:50 | NUR ---
Patient slept intermittently. No signs of any hallucinations or agitation. will endorse to AM shift nurse.
--- NOTE | 2018-01-28 07:00 | NUR ---
NURSE NOTES: patient received asleep, on bed on a semi-perez's position with no SOB or distress. call light within reach. Bed alarm on for safety. Will do hourly rounding and continue to monitor patient.
[2018-01-28] MEDS: FAMOTIDINE 20 MG TABLET PO SCH (08:25)
[2018-01-28] MEDS: MULTIVITAMINS,THERAPEUTIC TABLET PO SCH (08:25)
[2018-01-28] MEDS: OLANZAPINE 5 MG TABLET PO SCH ×2 (08:25→16:47)
[2018-01-28] MEDS: BENZTROPINE MESYLATE 0.5 MG TABLET PO SCH ×2 (08:25→16:48)
[2018-01-28] MEDS: SERTRALINE HCL 50 MG TABLET PO SCH (08:26)
[2018-01-28 08:56] VITALS: BP 115/80
--- NOTE | 2018-01-28 13:41 | NUR ---
INTERDISCIPLINARY TEAM CONFERENCE
--- NOTE | 2018-01-28 16:00 | NUR ---
NURSE NOTES: patient remained stable with no SOB or distress. Denies any pain. call light within his reach. Bed alarm on for safety. Will continue to monitor.
--- NOTE | 2018-01-28 18:51 | NUR ---
NURSE NOTES: patient resting on bed on a semi-perez's position with no SOB or distress. Denies any pain or discomforts at this time. All due medications given tolerated well. wound treatment done, tolerated well. all needs were attended and anticipated. Will endorse to incoming shift.
--- NOTE | 2018-01-28 19:40 | NUR ---
PATIENT AWAKE ON BED. ASSISTED TO THE REST ROOM REQUESTED. NOTICED LOOSE BM. NO BEHAVIORAL PROBLEMS NOTED. WILL CONTINUE TO MONITOR
[2018-01-28 20:28] VITALS: BP 96/58
[2018-01-28] MEDS: DOCUSATE SODIUM 100 MG CAPSULE PO SCH (21:00)
--- NOTE | 2018-01-28 21:00 | NUR ---
COLACE NOT GIVEN DUE TO LOOSE BM
--- NOTE | 2018-01-29 06:30 | NUR ---
Patient sleepng intermittently, easily arousing,. No behaviouarl issues noted during the shift. loose B x 1 during the shift.. safety measures observed
[2018-01-29 08:00] VITALS: BP 116/80
[2018-01-29] MEDS: FAMOTIDINE 20 MG TABLET PO SCH (09:55)
[2018-01-29] MEDS: SERTRALINE HCL 50 MG TABLET PO SCH (09:55)
[2018-01-29] MEDS: MODAFINIL 100 MG TABLET PO SCH (09:55)
[2018-01-29] MEDS: BENZTROPINE MESYLATE 0.5 MG TABLET PO SCH ×2 (09:55→17:16)
[2018-01-29] MEDS: OLANZAPINE 5 MG TABLET PO SCH ×2 (09:57→17:16)
[2018-01-29] MEDS: MULTIVITAMINS,THERAPEUTIC TABLET PO SCH (09:57)
[2018-01-29 20:00] VITALS: BP 108/52
[2018-01-29] MEDS: DOCUSATE SODIUM 100 MG CAPSULE PO SCH (21:00)
--- NOTE | 2018-01-30 06:36 | NUR ---
Patient sleeping comfortably, easily arousing to verbal response. No distress onted. slept about 10 hrs during he shift. No BM during the shift.
[2018-01-30 08:00] VITALS: BP 101/61
[2018-01-30] MEDS: OLANZAPINE 5 MG TABLET PO SCH ×2 (10:01→17:22)
[2018-01-30] MEDS: FAMOTIDINE 20 MG TABLET PO SCH (10:01)
[2018-01-30] MEDS: MULTIVITAMINS,THERAPEUTIC TABLET PO SCH (10:01)
[2018-01-30] MEDS: SERTRALINE HCL 50 MG TABLET PO SCH (10:02)
[2018-01-30] MEDS: BENZTROPINE MESYLATE 0.5 MG TABLET PO SCH ×2 (10:02→17:22)
[2018-01-30] MEDS: MODAFINIL 100 MG TABLET PO SCH (10:04)
[2018-01-30 19:30] VITALS: BP 99/61
--- NOTE | 2018-01-30 19:45 | NUR ---
Received patient in bed, awake, alert an verbally responsive. No agitations or hallucinations noted. Vital signs taken and recorded. Pertinent assessment done. Safety measures provided. Call light in reach. will monitor the patient.
[2018-01-30] MEDS: DOCUSATE SODIUM 100 MG CAPSULE PO SCH (20:12)
[2018-01-31 07:20] VITALS: BP 95/59
--- NOTE | 2018-01-31 08:29 | NUR ---
patient noted sitting up in bed eating breakfast, no complaints of pain, no signs of distress noted, call light in reach, bed locked and in lowest position, x2 bed rails, bed alarm in place
[2018-01-31] MEDS: BENZTROPINE MESYLATE 0.5 MG TABLET PO SCH ×2 (08:55→17:32)
[2018-01-31] MEDS: MULTIVITAMINS,THERAPEUTIC TABLET PO SCH (08:55)
[2018-01-31] MEDS: MODAFINIL 100 MG TABLET PO SCH (08:56)
[2018-01-31] MEDS: FAMOTIDINE 20 MG TABLET PO SCH (08:56)
[2018-01-31] MEDS: OLANZAPINE 5 MG TABLET PO SCH ×2 (08:56→17:32)
[2018-01-31] MEDS: SERTRALINE HCL 50 MG TABLET PO SCH (08:56)
--- NOTE | 2018-01-31 19:35 | NUR ---
Patient laying in bed, asleep but arouses when called by name. Introduced myself to the patient. Patient appeared calm, no agitations or hallucinations noted. Vital signs taken and recorded, WNL. No signs of any acute respiratory distress. Denies of any pain. Pertinent assessment done. Provided safety measures. Will monitor the patient.
[2018-01-31 20:14] VITALS: BP 99/66
[2018-01-31] MEDS: DOCUSATE SODIUM 100 MG CAPSULE PO SCH (20:37)
[2018-02-01 07:20] VITALS: BP 101/59
--- NOTE | 2018-02-01 08:27 | NUR ---
I agree Addendum: 02/01/18 at 4470 by KAREN LARIOS OT Amended: Links added.
--- NOTE | 2018-02-01 08:28 | NUR ---
I agree Addendum: 02/01/18 at 0828 by KAREN LARIOS OT Amended: Links added.
[2018-02-01] MEDS: MODAFINIL 100 MG TABLET PO SCH (09:31)
[2018-02-01] MEDS: SERTRALINE HCL 50 MG TABLET PO SCH (09:31)
[2018-02-01] MEDS: FAMOTIDINE 20 MG TABLET PO SCH (09:31)
[2018-02-01] MEDS: MULTIVITAMINS,THERAPEUTIC TABLET PO SCH (09:31)
[2018-02-01] MEDS: BENZTROPINE MESYLATE 0.5 MG TABLET PO SCH ×2 (09:32→16:47)
[2018-02-01] MEDS: OLANZAPINE 5 MG TABLET PO SCH ×2 (09:32→16:48)
--- NOTE | 2018-02-01 12:45 | NUR ---
SBAR report received, board updated. Pt assessed, denies pain or discomfort. Pt compliant with routine morning medications whole. Bed in locked and lowest position, with side rails up x2. Call light placed within reach. All needs attended to. Pt able to make needs known. Will continue to monitor.
--- NOTE | 2018-02-01 17:33 | NUR ---
Pt resting comfortably, no distress noted. Pt compliant with all routine evening medication administration. All comfort and safety measures implemented. Call light placed within reach. Will continue to monitor and endorse to hot knife foxing cutter.
--- NOTE | 2018-02-01 19:25 | NUR ---
Patient in bed, awake, alert an verbally responsive. No agitations or hallucinations noted. Vital signs taken and recorded. No signs of any acute respi.distress. Patient more alert now compared to previous days. Pertinent assessment done. Safety measures provided. Call light in reach. will monitor the patient.
[2018-02-01 20:58] VITALS: BP 98/64
[2018-02-01] MEDS: DOCUSATE SODIUM 100 MG CAPSULE PO SCH (21:00)
[2018-02-02 08:00] VITALS: BP 88/52
[2018-02-02] MEDS: BENZTROPINE MESYLATE 0.5 MG TABLET PO SCH (09:11)
[2018-02-02] MEDS: OLANZAPINE 5 MG TABLET PO SCH (09:12)
[2018-02-02] MEDS: SERTRALINE HCL 50 MG TABLET PO SCH (09:13)
[2018-02-02] MEDS: MODAFINIL 100 MG TABLET PO SCH (09:13)
[2018-02-02] MEDS: FAMOTIDINE 20 MG TABLET PO SCH (09:13)
[2018-02-02] MEDS: MULTIVITAMINS,THERAPEUTIC TABLET PO SCH (09:13)
--- NOTE | 2018-02-02 15:08 | NUR ---
D/C NOTE REPORT PROVIDED TO MARI AT THE [facility] WHERE HE IS RETURNING. D/C ORDER ON FILE. SKIN INTACT. BELONGINGS LIST FROM 2ND FLOOR RECONCILED.
--- NOTE | 2018-02-24 11:54 | NUR ---
I agree Addendum: 02/24/18 at 1155 by ILANA ONEAL OT Amended: Links added.
--- NOTE | 2018-02-24 11:55 | NUR ---
I agree Addendum: 02/24/18 at 1156 by ILANA ONEAL OT Amended: Links added.
== END 2018-02-02 16:40 | disposition home health service (06) | DRG 949 ==
PROVIDERS: ADMIT Physical Medicine & Rehabilitation Pain Medicine; ATTEND Physical Medicine & Rehabilitation Pain Medicine
DX: S06.9X9D Unspecified intracranial injury with loss of consciousness of unspecified duration, subsequent encounter (principal); G92 Toxic encephalopathy; G81.94 Hemiplegia, unspecified affecting left nondominant side; D68.59 Other primary thrombophilia; F20.9 Schizophrenia, unspecified; F20.0 Paranoid schizophrenia; D64.9 Anemia, unspecified; F32.9 Major depressive disorder, single episode, unspecified; X58.XXXD Exposure to other specified factors, subsequent encounter; R19.7 Diarrhea, unspecified; R53.1 Weakness; L98.8 Other specified disorders of the skin and subcutaneous tissue; R13.10 Dysphagia, unspecified; Z87.891 Personal history of nicotine dependence; T14.8XXD Other injury of unspecified body region, subsequent encounter
CPT/HCPCS: 36415; 70030-TC; 71045; 83735; 84100; 85025; 92523; 92526; 92610; 97110; 97112; 97116; 97165; 97530; 97535; A4663; J1630